=== PATIENT | female | born 1960 | race Caucasian/White ===

== ENCOUNTER 2020-05-02 09:09 | Emergency (ER) | payer OTHER ==
--- NOTE | 2020-05-02 09:51 | RAD REPORT ---
EXAM DESCRIPTION: RAD - Chest Single View - 05/02/2020 9:46 am CLINICAL HISTORY: CHEST PAIN Chest pain. COMPARISON: CHEST SINGLE VIEW dated 01/01/2016 FINDINGS: Portable technique limits examination quality. The lungs are grossly clear. The heart is normal in size. No displaced fractures. IMPRESSION: No acute intrathoracic process suspected.
[2020-05-02 09:53] LABS: Absolute Lymphocytes (CBC) 1.3 K/uL (0.7-4.9); Basophils % 0.5 % (0-1.3); Hematocrit 42.7 % (36.0-45.0); Lymphocytes % 27.2 % (15.3-44.8); MPV 8.1 fL (7.6-11.3); RBC Red Blood Cell Count 4.79 M/uL (3.86-4.86)
[2020-05-02 09:56] LABS: Protime INR 1.03
[2020-05-02 10:12] LABS: ALT/SGPT 25 U/L (12-78); AST/SGOT 12 U/L (15-37); Albumin 3.6 g/dL (3.4-5.0); Alkaline Phosphatase 66 U/L (45-117); BUN Blood Urea Nitrogen 14 mg/dL (7-18); Bicarbonate 28 mmol/L (21-32); Bilirubin Direct 0.1 mg/dL (0-0.2); Bilirubin Total 0.6 mg/dL (0.2-1.0); Glucose Level 118 mg/dL (74-106); Magnesium 2.2 mg/dL (1.8-2.4); NT PRO-BNP 29 pg/mL (<125); Potassium 3.8 mmol/L (3.5-5.1); Protein, Total 7.2 g/dL (6.4-8.2); Sodium Level 140 mmol/L (136-145); Troponin (Emerg Dept Use Only) < 0.02 ng/mL (0.0-0.045)
--- NOTE | 2020-05-02 14:18 | EDPHYS ---
Physician Documentation [facility] Name: Cece Mullins Age: 59 yrs Sex: Female : 1960 Arrival Date: 05/02/2020 Time: 09:12 Bed 3 Private MD: Amy Sweeney K ED Physician Juan Antonio Ayala HPI: 05/02 09:35 This 59 yrs old Female presents to ER via Ambulatory with complaints of Chest pm1 Pain. 09:35 The patient or guardian reports chest pain that is located primarily in the mid-sternal pm1 area. Onset: 4 day(s) ago. The pain does not radiate. Associated signs and symptoms: The patient has no apparent associated signs or symptoms, Pertinent negatives: abdominal pain, cough, diaphoresis, dizziness, headache, nausea, near syncope, palpitations, shortness of breath, vomiting. The chest pain is described as a pressure. Duration: The patient or guardian reports multiple episodes, on and off for the past 4 days. Starting last night present from dinner time until just prior to arrival. Chest pain currently resolved. 0/10 pain. Modifying factors: The symptoms are alleviated by nothing. the symptoms are aggravated by nothing. Severity of pain: in the emergency department the pain has resolved is a 0 / 10. The patient has experienced a previous episode, approximately 5 years ago. Historical: - Allergies: 09:19 Phenobarbital; ss - PMHx: 09:19 Depression; High Cholesterol; ss - PSHx: 09:19 Lumpectomy; Hernia repair; ss - Immunization history:: Adult Immunizations up to date. - Social history:: Smoking status: Patient denies any tobacco usage or history of. ROS: 09:35 Constitutional: Negative for fever, chills, and weight loss, Respiratory: Negative for pm1 shortness of breath, cough, wheezing, and pleuritic chest pain. 09:35 Neck: Negative for injury, pain, and swelling, Abdomen/GI: Negative for abdominal pain, nausea, vomiting, diarrhea, and constipation, Back: Negative for injury and pain, MS/Extremity: Negative for injury and deformity, Skin: Negative for injury, rash, and discoloration, Neuro: Negative for headache, weakness, numbness, tingling, and seizure. 09:35 Cardiovascular: Positive for chest pain, Negative for edema, orthopnea, palpitations. Exam: 09:35 Constitutional: This is a well developed, well nourished patient who is awake, alert, pm1 and in no acute distress. Head/Face: Normocephalic, atraumatic. Neck: Trachea midline, no thyromegaly or masses palpated, and no cervical lymphadenopathy. Supple, full range of motion without nuchal rigidity, or vertebral point tenderness. No Meningismus. Chest/axilla: Normal chest wall appearance and motion. Nontender with no deformity. No lesions are appreciated. 09:35 Abdomen/GI: Soft, non-tender, with normal bowel sounds. No distension or tympany. No guarding or rebound. No evidence of tenderness throughout. Back: No spinal tenderness. No costovertebral tenderness. Full range of motion. Skin: Warm, dry with normal turgor. Normal color with no rashes, no lesions, and no evidence of cellulitis. MS/ Extremity: Pulses equal, no cyanosis. Neurovascular intact. Full, normal range of motion. 09:35 Cardiovascular: Exam negative for acute changes, Rate: normal, Rhythm: regular, Pulses: no pulse deficits are appreciated, Heart sounds: normal, normal S1and S2, Edema: is not appreciated. 09:35 Respiratory: Exam negative for acute changes, respiratory distress, shortness of breath, wheezing. 09:35 Neuro: Exam negative for acute changes, Orientation: is normal, Mentation: is normal, Motor: is normal, moves all fours, Sensation: is normal, no obvious gross deficits. Vital Signs: 09:16 BP 163 / 87; Pulse 90; Resp 15; Temp 97.4(TE); Pulse Ox 98% on R/A; Weight 77.11 kg; ss Height 5 ft. 7 in. (170.18 cm); Pain 2/10; 10:12 BP 120 / 77; Pulse 67; Resp 12; Pulse Ox 100% on R/A; mh5 11:05 BP 116 / 73; Pulse 64; Resp 13; Pulse Ox 98% on R/A; sv 12:00 BP 104 / 78; Pulse 69; Resp 15; Pulse Ox 99% ; sv 12:56 BP 107 / 70; Pulse 64; Resp 16; Pulse Ox 96% ; sv 14:10 BP 127 / 77; Pulse 67; Resp 12; Pulse Ox 98% ; sv 09:16 Body Mass Index 26.63 (77.11 kg, 170.18 cm) ss MDM: 09:29 Patient medically screened. pm1 09:29 Data reviewed: vital signs. Data interpreted: Pulse oximetry: on room air is 98 %. pm1 Interpretation: normal. 11:03 Counseling: I had a detailed discussion with the patient and/or guardian regarding: lab pm1 results, radiology results, Heart score = 2. Would like to get 4 hour repeat troponin in the ER. Discussed plan with patient for repeat troponin and she is agreeable to the plan. 14:17 Counseling: I had a detailed discussion with the patient and/or guardian regarding: the pm1 historical points, exam findings, and any diagnostic results supporting the discharge/admit diagnosis, lab results, the need for outpatient follow up, to return to the emergency department if symptoms worsen or persist or if there are any questions or concerns that arise at home. 05/02 09:30 Order name: Basic Metabolic Panel; Complete Time: 10:21 pm05/02 09:30 Order name: CBC with Diff; Complete Time: 10:02 pm05/02 09:30 Order name: LFT's; Complete Time: 10:21 pm05/02 09:30 Order name: Magnesium; Complete Time: 10:21 pm05/02 09:30 Order name: NT PRO-BNP; Complete Time: 10:21 pm05/02 09:30 Order name: PT-INR; Complete Time: 10:02 pm05/02 09:30 Order name: Troponin (emerg Dept Use Only); Complete Time: 10:21 pm05/02 09:30 Order name: XRAY Chest (1 view); Complete Time: 10:02 pm05/02 09:30 Order name: EKG; Complete Time: 09:31 pm05/02 09:30 Order name: Cardiac monitoring; Complete Time: 09:34 pm05/02 09:30 Order name: EKG - Nurse/Tech; Complete Time: 09:49 pm05/02 09:30 Order name: IV Saline Lock; Complete Time: 09:49 pm05/02 09:30 Order name: Labs collected and sent; Complete Time: 09:49 pm05/02 11:23 Order name: Troponin (emerg Dept Use Only): draw at 1330; Complete Time: 14:17 sv 05/02 09:30 Order name: O2 Per Protocol; Complete Time: 09:34 pm1 05/02 09:30 Order name: O2 Sat Monitoring; Complete Time: 09:34 pm1 Administered Medications: No medications were administered Disposition: 19:39 Co-signature as Attending Physician, Juan Antonio Ayala MD. mh7 Disposition: 05/02/20 14:17 Discharged to Home. Impression: Chest pain, unspecified. - Condition is Stable. - Discharge Instructions: Nonspecific Chest Pain. - Medication Reconciliation Form, Thank You Letter, Antibiotic Education, Prescription Opioid Use form. - Follow up: Emergency Department; When: As needed; Reason: Worsening of condition. Follow up: Private Physician; When: 2 - 3 days; Reason: Recheck today's complaints, Continuance of care, Re-evaluation by your physician. - Problem is new. - Symptoms have improved. Signatures: Dispatcher [employer] EDMS Nila Patel RN RN ss Yosef Peterson, RODRIGO FOUNDRY MOLDER pm1 Claudine Wolfe RN RN tw2 Juan Antonio Ayala MD MD 7 Corrections: (The following items were deleted from the chart) 14:36 14:17 05/02/2020 14:17 Discharged to Home. Impression: Chest pain, unspecified. tw2 Condition is Stable. Forms are Medication Reconciliation Form, Thank You Letter, Antibiotic Education, Prescription Opioid Use. Follow up: Emergency Department; When: As needed; Reason: Worsening of condition. Follow up: Private Physician; When: 2 - 3 days; Reason: Recheck today's complaints, Continuance of care, Re-evaluation by your physician. Problem is new. Symptoms have improved. pm1
--- NOTE | 2020-05-02 14:18 | ER ---
Nurse's Notes [facility] Name: Cece Mullins Age: 59 yrs Sex: Female : 1960 Arrival Date: 05/02/2020 Time: 09:12 Bed 3 Private MD: Amy Sweeney K Diagnosis: Chest pain, unspecified Presentation: 05/02 09:16 Chief complaint: Patient states: intermittent chest pressure that began 4 days ago. Coronavirus screen: Proceed with normal triage. Patient denies a cough. Patient denies shortness of breath or difficulty breathing. Patient denies measured and/or subjective temperature greater than 100.4F prior to today's visit. Patient denies travel on a cruise ship or to a country the [facility] currently lists as an affected area. Patient denies contact with known and/or suspected case of COVID-19. Ebola Screen: Patient denies exposure to infectious person. Patient denies travel to an Ebola-affected area in the 21 days before illness onset. Initial Sepsis Screen: Does the patient meet any 2 criteria? No. Patient's initial sepsis screen is negative. Does the patient have a suspected source of infection? No. Patient's initial sepsis screen is negative. Risk Assessment: Do you want to hurt yourself or someone else? Patient reports no desire to harm self or others. Onset of symptoms was April 28, 2020. 09:16 Method Of Arrival: Ambulatory 09:16 Acuity: MAHESH 3 ss Historical: - Allergies: 09:19 Phenobarbital; ss - PMHx: 09:19 Depression; High Cholesterol; ss - PSHx: 09:19 Lumpectomy; Hernia repair; ss - Immunization history:: Adult Immunizations up to date. - Social history:: Smoking status: Patient denies any tobacco usage or history of. Screenin:22 Abuse screen: Denies threats or abuse. Nutritional screening: No deficits noted. tw2 Tuberculosis screening: No symptoms or risk factors identified. Fall Risk None identified. Assessment: 09:22 Pain: Pain began 4 days ago. tw2 09:22 General: Appears in no apparent distress. slender, well groomed, Behavior is calm, tw2 cooperative, appropriate for age. Pain: Complains of pain in xyphoid area and mid-sternal area Pain does not radiate. Quality of pain is described as heavy, pressure. Neuro: Level of Consciousness is awake, alert, obeys commands, Oriented to person, place, time, situation. Cardiovascular: Denies shortness of breath, Heart tones S1 S2 Patient's skin is warm and dry. Respiratory: Airway is patent Respiratory effort is even, unlabored, Respiratory pattern is regular, symmetrical, Breath sounds are clear bilaterally. GI: No signs and/or symptoms were reported involving the gastrointestinal system. Abdomen is flat, Bowel sounds present X 4 quads. : No signs and/or symptoms were reported regarding the genitourinary system. EENT: No signs and/or symptoms were reported regarding the EENT system. Derm: No signs and/or symptoms reported regarding the dermatologic system. Musculoskeletal: Capillary refill < 3 seconds, Range of motion: intact in all extremities. 10:43 Reassessment: Patient appears in no apparent distress at this time. No changes from tw2 previously documented assessment. Patient and/or family updated on plan of care and expected duration. Pain level reassessed. Patient is alert, oriented x 3, equal unlabored respirations, skin warm/dry/pink. 11:45 Reassessment: Patient appears in no apparent distress at this time. No changes from tw2 previously documented assessment. Patient and/or family updated on plan of care and expected duration. Pain level reassessed. Patient is alert, oriented x 3, equal unlabored respirations, skin warm/dry/pink. 12:45 Reassessment: Patient appears in no apparent distress at this time. No changes from tw2 previously documented assessment. Patient and/or family updated on plan of care and expected duration. Pain level reassessed. Patient is alert, oriented x 3, equal unlabored respirations, skin warm/dry/pink. 13:45 Reassessment: Patient appears in no apparent distress at this time. No changes from tw2 previously documented assessment. Patient and/or family updated on plan of care and expected duration. Pain level reassessed. Patient is alert, oriented x 3, equal unlabored respirations, skin warm/dry/pink. 14:34 Reassessment: Patient appears in no apparent distress at this time. No changes from tw2 previously documented assessment. Patient and/or family updated on plan of care and expected duration. Pain level reassessed. Patient is alert, oriented x 3, equal unlabored respirations, skin warm/dry/pink. Vital Signs: 09:16 BP 163 / 87; Pulse 90; Resp 15; Temp 97.4(TE); Pulse Ox 98% on R/A; Weight 77.11 kg; ss Height 5 ft. 7 in. (170.18 cm); Pain 2/10; 10:12 BP 120 / 77; Pulse 67; Resp 12; Pulse Ox 100% on R/A; mh5 11:05 BP 116 / 73; Pulse 64; Resp 13; Pulse Ox 98% on R/A; sv 12:00 BP 104 / 78; Pulse 69; Resp 15; Pulse Ox 99% ; sv 12:56 BP 107 / 70; Pulse 64; Resp 16; Pulse Ox 96% ; sv 14:10 BP 127 / 77; Pulse 67; Resp 12; Pulse Ox 98% ; sv 09:16 Body Mass Index 26.63 (77.11 kg, 170.18 cm) ED Course: 09:12 Patient arrived in ED. mr 09:12 Amy Sweeney MD is Private Physician. mr 09:18 Triage completed. ss 09:19 Arm band placed on right wrist. ss 09:22 Claudnie Wofle, BESSIE is Primary Nurse. tw2 09:22 Placed in gown. Bed in low position. surveillance system monitor on. Pulse ox on. NIBP on. tw2 09:22 Patient maintains SpO2 saturation greater than 95% on room air. tw2 09:23 Yosef Peterson NP is PHCP. pm1 09:23 Juan Antonio Ayala MD is Attending Physician. pm1 09:29 Nurse Practitioner and/or Physician Chute Greaser to see patient. sv 09:35 Inserted saline lock: 20 gauge in left antecubital area, using aseptic technique. Blood sv collected. Flushed left antecubital with 5 ml normal saline. 09:47 XRAY Chest (1 view) In Process Unspecified. EDMS 09:49 EKG done, by ED staff, reviewed by Yosef Peterson NP. at1 14:34 No provider procedures requiring assistance completed. IV discontinued, intact, tw2 bleeding controlled, No redness/swelling at site. Pressure dressing applied. Administered Medications: No medications were administered Outcome: 14:17 Discharge ordered by . pm1 14:34 Discharged to home ambulatory. tw2 14:34 Condition: stable 14:34 Discharge instructions given to patient, Instructed on discharge instructions, follow up and referral plans. Demonstrated understanding of instructions, follow-up care. 14:36 Patient left the ED. tw2 Signatures: Dispatcher [employer] Kari Sanchez, RN Riana Avila Shelby, RN RN ss Maryam Valderrama, screwmaker automatic EKG Tat1 Yosef Peterson, GRAFFITI CLEANER GRAFFITI CLEANER pm1 Claudine Wolfe RN RN 2 Bonnie Plasencia [facility]
[2020-05-02 14:46] VITALS: TEMP 97.4
[2020-05-02 14:52] VITALS: BP 127/77; O2SAT 98
--- NOTE | 2020-05-03 16:31 | EKG ---
Test Date: 2020-05-02 Test Time: 09:43:57 Booking Manager: GEORGINA MEASUREMENT RESULTS: Intervals: Rate: 68 HI: 148 QRSD: 82 QT: 394 QTc: 418 Savage: P: 57 HI: 148 QRS: 33 T: 47 INTERPRETIVE STATEMENTS: Normal sinus rhythm Normal ECG Compared to ECG 01/01/2016 17:29:50 No significant changes Electronically Signed On 05-03-20 16:27:46 CDT by Jose Christianson
== END 2020-05-02 14:36 | disposition home or self-care (01) ==
LOC: ER 09:09
DX: R07.9 Chest pain, unspecified (principal); Z88.8 Allergy status to other drugs, medicaments and biological substances
CPT/HCPCS: 36415; 71045; 80048; 80076; 83735; 83880; 84484; 85025; 85610; 93005; 99285